=== PATIENT | male | born 1990 | race Caucasian/White ===

== ENCOUNTER 2022-07-08 19:23 | Emergency (ER) | payer OTHER ==
[2022-07-08 19:52] LABS: BASOPHILS % (AUTO) 0.5 %; EOSINOPHILS # (AUTO) 0.2 10^3/uL (0.0-0.7); EOSINOPHILS % (AUTO) 2.6 %; HCT - HEMATOCRIT 44.7 % (42.0-52.0); LYMPHOCYTES # (AUTO) 1.6 10^3/uL (1.5-3.5); LYMPHOCYTES % (AUTO) 19.3 %; MEAN CORPUSCULAR HEMOGLOBIN 30.7 pg (27.0-31.0); MEAN CORPUSCULAR HGB CONC 33.6 g/dL (32.0-36.0); MEAN CORPUSCULAR VOLUME 91.6 fL (80.0-94.0); MONOCYTES # (AUTO) 0.5 10^3/uL (0.0-1.0); MONOCYTES % (AUTO) 5.9 %; NEUTROPHILS # (AUTO) 5.8 10^3/uL (1.5-6.6); NEUTROPHILS % (AUTO) 71.6 %; PLT - PLATELET COUNT 211 10^3/uL (130-450); RED BLOOD COUNT 4.88 10^6/uL (4.70-6.10); RED CELL DISTRIBUTION WIDTH 11.6 % (12.0-15.0); WHITE BLOOD COUNT 8.1 x10^3/uL (4.8-10.8)
[2022-07-08 20:11] LABS: ALBUMIN 4.9 g/dL (3.2-5.5); ALBUMIN/GLOBULIN RATIO 1.6 (1.0-2.2); BILIRUBIN,TOTAL 0.5 mg/dL (0.2-1.0); CALCIUM 9.9 mg/dL (8.5-10.3); CREATININE 0.9 mg/dL (0.6-1.2); POTASSIUM 3.8 mmol/L (3.5-5.0)
[2022-07-08 20:29] LABS: BILIRUBIN,URINE NEGATIVE (NEGATIVE); GLUCOSE, URINE (UA) NEGATIVE (NEGATIVE); KETONES,URINE (UA) NEGATIVE (NEGATIVE); LEUKOCYTE ESTERASE, URINE NEGATIVE (NEGATIVE); NITRITE,URINE NEGATIVE (NEGATIVE); OCCULT BLOOD,URINE NEGATIVE (NEGATIVE); PROTEIN,URINE NEGATIVE (NEGATIVE); UROBILINOGEN,URINE 0.2 (NORMAL) E.U./dL (NORMAL)
[2022-07-08 20:31] LABS: CLARITY,URINE CLEAR (CLEAR)
--- NOTE | 2022-07-08 20:32 | ED Physician Documentation ---
PD HPI ABD PAIN - Stated complaint Stated Complaint: ABD PX - Chief complaint Chief Complaint: Abd Pain - History obtained from History obtained from: Patient - History of Present Illness Timing - onset: How many weeks ago (3) Timing - details: Gradual onset, Intermittant Quality: Pain Location: RUQ, RLQ Radiation: Chest Improved by: Other (nothing) Worsened by: Other (no inciting nor) Associated symptoms: No: Fever, Nausea, Vomiting, Diarrhea, Constipation, Melena, Hematochezia Similar symptoms before: No diagnosis - Additional information Additional information: c/o 3 weeks of abdominal pain, RLQ radiating to RUQ and upper back and both shoulders. Pain has been episodic without exacerbating or ameliorating factors. he says he was evaluated by his primary care provider recently for this , per patient there was no specific diagnosis. Denies diarrhea, denies blood in stool. No recent antibiotic use Review of Systems Constitutional: denies: Fever, Chills, Sweats Cardiac: reports: Reviewed and negative Respiratory: reports: Reviewed and negative GI: reports: Abdominal Pain. denies: Abdominal Swelling, Nausea, Vomiting, Constipation, Diarrhea, Hematemesis, Bloody / black stool : denies: Dysuria, Frequency Skin: denies: Rash PD PAST MEDICAL HISTORY - Past Medical History Past Medical History: Yes GI: GERD - Past Surgical History Past Surgical History: Yes General: Appendectomy - Present Medications Home Medications: Ambulatory Orders Medication Instructions Recorded Confirmed Fexofenadine [Nancy] 60 mg PO DAILY 07/08/22 07/08/22 Ibuprofen [Motrin] 1 tablet PO Q8H PRN 07/08/22 07/08/22 Omeprazole Magnesium 10 mg PO DAILY 07/08/22 07/08/22 - Allergies Allergies/Adverse Reactions: Allergies Allergy/AdvReac Type Severity Reaction Status Date / Time No Known Drug Allergies Allergy Verified 07/08/22 19:40 PD ED PE NORMAL - Vitals Vital signs reviewed: Yes - General General: Alert and oriented X 3, No acute distress, Well developed/nourished - HEENT HEENT: Moist mucous membranes - Cardiac Cardiac: RRR, No murmur - Respiratory Respiratory: No respiratory distress, Clear bilaterally - Abdomen Abdomen: Soft, Non distended, Other (mild RUQ and epigastric TTP without rebound or guarding) - Derm Derm: Normal color, Warm and dry, No rash Results - Vitals Vitals: Vital Signs - 24 hr 07/08/22 07/08/22 07/08/22 19:36 21:43 22:51 Temperature 36.5 C 36.5 C Heart Rate 81 51 L 60 Respiratory 14 15 16 Rate Blood Pressure 152/94 H 128/87 H 125/79 O2 Saturation 100 100 100 Oxygen O2 Source Room air - Labs Labs: Laboratory Tests 07/08/22 07/08/22 07/08/22 19:49 19:49 20:10 WBC 8.1 RBC 4.88 Hgb 15.0 Hct 44.7 MCV 91.6 MCH 30.7 MCHC 33.6 RDW 11.6 L Plt Count 211 MPV 9.0 Neut # (Auto) 5.8 Lymph # (Auto) 1.6 [place] # (Auto) 0.5 Eos # (Auto) 0.2 Baso # (Auto) 0.0 Absolute Nucleated RBC 0.00 Nucleated RBC % 0.0 Sodium 138 Potassium 3.8 Chloride 103 Carbon Dioxide 27 Anion Gap 8.0 BUN 12 Creatinine 0.9 Estimated GFR (MDRD) 98 Glucose 103 H Calcium 9.9 Total Bilirubin 0.5 AST 28 ALT 34 Alkaline Phosphatase 63 Total Protein 8.0 Albumin 4.9 Globulin 3.1 Albumin/Globulin Ratio 1.6 Lipase 27 Urine Color YELLOW Urine Clarity CLEAR Urine pH 6.0 Ur Specific [place] 1.015 Urine Protein NEGATIVE Urine Glucose (UA) NEGATIVE Urine Ketones NEGATIVE Urine Occult Blood NEGATIVE Urine Nitrite NEGATIVE Urine Bilirubin NEGATIVE Urine Urobilinogen 0.2 (NORMAL) Ur Leukocyte Esterase NEGATIVE Ur Microscopic Review NOT INDICATED Urine Culture Comments NOT INDICATED - Rads (name of study) CT A/P with IV contrast Radiology: Prelim report reviewed, See rad report PD MEDICAL DECISION MAKING - ED course Complexity details: reviewed results, re-evaluated patient, considered differential, d/w patient ED course: Normal CBC, ER abdominal panel (including LFTs and lipase), UA. CT A/P with IV contrast without significant abnormality. There is "questionable colonic wall thickening involving descending colon and sigmoid colon", "narrowing of the lumen and mild pericolonic fat stranding concerning for low-grade colitis" (per radiology reading). The CT is otherwise unremarkable. Findings on CT do not correlate with exam findings (he does not have any left- sided tenderness on exam). He also denies frequent stools, loose stools/diarrhea, blood in stools, fever. At this time, I would not treat for colitis considering absence of other elements of HPI/ROS to correlate with colitis, but further testing might be helpful regarding the CT findings. I discussed with patient the results and the lack of apparent cause of his symptoms. Advised to seek follow up with his primary care provider and return precautions are also reviewed Departure - Departure Disposition: 01 Home, Self Care Clinical Impression: Abdominal pain Qualifiers: Abdominal location: generalized Qualified Code(s): R10.84 - Generalized abdominal pain Condition: Good Instructions: ED Abdominal Pain Unkn Cause Male Comments: Your blood tests and urinalysis are normal tonight. The CT scan of your abdomen/pelvis has possible thickening of the wall of the colon on the left side of the abdomen; the significance of this finding is unclear, but this might be early/mild colitis. Your symptoms are not suggestive of anything more than very mild colitis, and thus no specific diagnosis nor treatment can be made/offered at this time. You might benefit from further testing such as colonoscopy, and/or referral to a specialist such as a rack worker. Follow up with your primary care provider to discuss these results and recommendations for further evaluation Discharge Date/Time: 07/08/22 22:51
[2022-07-08] MEDS ORDERED: iohexoL-300 100 ML VIAL ONE (21:03)
--- NOTE | 2022-07-08 21:37 | CT Report ---
PROCEDURE: ABDOMEN/PELVIS W INDICATIONS: abdominal pain, TTP CONTRAST: Omni 300 100ml TECHNIQUE: After the administration of IV contrast, 5 mm thick sections acquired from the diaphragms to the symp hysis. 5 mm thick coronal and sagittal reformats were acquired. For radiation dose reduction, the f ollowing was used: automated exposure control, adjustment of mA and/or kV according to patient size. COMPARISON: None. FINDINGS: Image quality: Excellent. ABDOMEN: Lung bases: Lung bases are clear. Heart size is normal. Solid organs: Liver and spleen are normal in size and enhancement. Gallbladder is within normal mullen its. Biliary system is non dilated. Pancreas enhances normally. No adrenal nodules. Kidneys demon strate normal size and enhancement, without hydronephrosis. Peritoneum and bowel: There is no bowel obstruction. Questionable colonic wall thickening involving d escending colon and sigmoid colon is seen with narrowing of the lumen and mild pericolonic fat strand ing concerning for low-grade colitis. No gastric or small bowel wall thickening. Appendix is not visu alized. No bowel wall thickening or mesenteric fat stranding is seen in right lower quadrant abdomen. Nodes and vessels: No retroperitoneal or mesenteric adenopathy by size criteria. Aorta and inferior vena cava are normal in size. Miscellaneous: No ventral hernias. PELVIS: Genitourinary: Bladder wall thickness is normal. Miscellaneous: No inguinal hernias or adenopathy. Bones: No suspicious bony lesions. No vertebral body compression fractures. IMPRESSION: 1. Finding may represent mild left-sided colitis. No bowel obstruction. No CT evidence of acute appen dicitis. No free fluid of free air. Reviewed by: Casey Cordova MD on 07/08/2022 9:36 PM PDT Approved by: Casey Cordova MD on 07/08/2022 9:36 PM PDT Station ID: [id number]
[2022-07-08 22:52] VITALS: BP 125/79
[2022-07-08] MEDS ORDERED: iohexoL-300 100 ML VIAL IVP ONE (23:38)
== END 2022-07-08 22:51 | disposition home or self-care (01) ==
LOC: ED 19:23
DX: R10.84 Generalized abdominal pain (principal)
CPT/HCPCS: 36415; 74177; 80053; 81003; 83690; 85025; 99282; 99284; Q9967; 81001; 87086